=== PATIENT | male | born 1975 | race Caucasian/White ===

== ENCOUNTER 2019-09-13 18:51 | Emergency (ER) | payer SELFPAY ==
[2019-09-13] MEDS ORDERED: TETANUS & DIPHTHERIA TOX,ADULT 0.5 ML VIAL ONE (19:23)
[2019-09-13] MEDS ORDERED: DOXYCYCLINE 100 MG CAP PO ONE (19:23)
[2019-09-13] MEDS ORDERED: LIDOCAINE 1% MPF 5 ML VIAL ONE (19:23)
--- NOTE | 2019-09-13 19:45 | ER ---
Nurse's Notes [facility] Name: Freddie Adler Age: 43 yrs Sex: Male : 1975 Arrival Date: 09/13/2019 Time: 18:52 Bed 7 Private MD: Diagnosis: Laceration without foreign body of left thumb without damage to nail Presentation: 09/13 19:08 Presenting complaint: Patient states: Laceration to right thumb while cutting a fish; lp1 No active bleeding during triage. Transition of care: patient was not received from another setting of care. Complicating Factors: There are no complicating factors for this patient. Onset of symptoms was September 13, 2019 at 18:30. Risk Assessment: Do you want to hurt yourself or someone else? Patient reports no desire to harm self or others. Initial Sepsis Screen: Does the patient meet any 2 criteria? No. Patient's initial sepsis screen is negative. Does the patient have a suspected source of infection? No. Patient's initial sepsis screen is negative. Care prior to arrival: None. 19:08 Method Of Arrival: Ambulatory lp1 19:08 Acuity: MONET 4 lp1 Historical: - Allergies: 19:19 PENICILLINS; lp1 - Home Meds: 19:19 None [Active]; lp1 - PMHx: 19:19 None; lp1 - PSHx: 19:19 None; lp1 - Immunization history:: Adult Immunizations up to date, Last tetanus immunization: up to date. - Social history:: Smoking status: Patient uses tobacco products, smokes two packs cigarettes per day. - Ebola Screening: : No symptoms or risks identified at this time. Screenin:15 Abuse screen: Denies threats or abuse. Nutritional screening: No deficits noted. tl2 Tuberculosis screening: No symptoms or risk factors identified. Fall Risk None identified. Assessment: 19:15 General: Appears in no apparent distress. comfortable, Behavior is calm, cooperative, tl2 appropriate for age. Pain: Complains of pain in palmar aspect of distal phalanx of left thumb and palmar aspect of proximal phalanx of left thumb. Neuro: Level of Consciousness is awake, alert, obeys commands, Oriented to person, place, time, situation. Respiratory: Airway is patent Respiratory effort is even, unlabored, Respiratory pattern is regular, symmetrical. Musculoskeletal: Circulation, motion, and sensation intact. Capillary refill < 3 seconds. Injury Description: Laceration is clean, 0.5 to 2.5 cm long, bleeding moderately, was sustained 30-60 minutes ago. is bleeding a small amount. 19:59 Reassessment: Patient appears in no apparent distress at this time. Patient and/or tl2 family updated on plan of care and expected duration. Pain level reassessed. Patient is alert, oriented x 3, equal unlabored respirations, skin warm/dry/pink. pt verbalized understanding of discharge instructions, need for follow up wound care, and prescription usage. Pt ambulatory out of ER with friend. Vital Signs: 19:08 BP 149 / 97; Pulse 80; Resp 16; Temp 98.2(O); Pulse Ox 98% on R/A; Weight 83.91 kg (R); tl2 Height 6 ft. 0 in. (182.88 cm); Pain 0/10; 19:47 BP 137 / 88; Pulse 75; Resp 18; Pulse Ox 98% on R/A; tl2 19:08 Body Mass Index 25.09 (83.91 kg, 182.88 cm) tl2 ED Course: 18:52 Patient arrived in ED. as 19:03 Brandyn Eduardo NP is PHCP. pm1 19:03 Ky De La Garza MD is Attending Physician. pm1 19:08 Triage completed. lp1 19:09 Fany Ritchie RN is Primary Nurse. tl2 19:09 Arm band placed on. lp1 19:15 Patient has correct armband on for positive identification. tl2 19:15 Wound care: to laceration located on dorsal aspect of proximal phalanx of left thumb tl2 was cleaned with soaked in Betadine solution, irrigated with normal saline, Patient tolerated well. 19:40 Assist provider with laceration repair on dorsal aspect of proximal phalanx of left tl2 thumb that was between 2.6 to 7.5 cm using sutures. Set up tray. Performed by Brandyn Eduardo NP Dressed with band aid, Neosporin, Patient tolerated well. 20:01 Patient did not have IV access during this emergency room visit. tl2 Administered Medications: 19:27 Drug: Doxycycline 100 mg Route: PO; tl2 20:02 Follow up: Response: No adverse reaction tl2 19:27 Drug: Tetanus-Diphtheria Toxoid Adult 0.5 ml {[place] [employer] Attendant: Kiddies Smilz. Exp: tl2 04/08/2021. Lot #: [id number]. } Route: IM; Site: left deltoid; 20:01 Follow up: Response: No adverse reaction tl2 19:38 Drug: Lidocaine (1 %) 5 ml Volume: 5 ml; Route: Infiltration; tl2 Outcome: 19:40 Discharged to home ambulatory, with friend. tl2 19:40 Condition: stable 19:40 Discharge instructions given to patient, Instructed on discharge instructions, follow up and referral plans. medication usage, wound care, Demonstrated understanding of instructions, follow-up care, medications, wound care, Prescriptions given X 1. 19:44 Discharge ordered by MD. pm1 20:01 Patient left the ED. tl2 Signatures: Cindy Desouza Laura, RN RN lp1 Brandyn Eduardo, BRANDON AUTO TRANSMISSION TECHNICIAN pm1 Fany Ritchie RN RN tl2 Corrections: (The following items were deleted from the chart) 19:10 19:08 BP 149 / 97; Pulse 80bpm; Resp 16bpm; Pulse Ox 98% RA; 83.91 kg Reported; Height tl2 6 ft. 0 in.; BMI: 25.0; Pain 0/10; lp1
--- NOTE | 2019-09-13 19:46 | EDPHYS ---
Physician Documentation [facility] Name: Freddie Adler Age: 43 yrs Sex: Male : 1975 Arrival Date: 09/13/2019 Time: 18:52 Bed 7 Private MD: ED Physician Ky De La Garza HPI: 09/13 19:15 This 43 yrs old Male presents to ER via Ambulatory with complaints of pm1 Laceration - Left Thumb. 19:15 The patient or guardian reports a laceration. The complaints affect the dorsal aspect pm1 of proximal phalanx of left thumb. Context: The problem was sustained outdoors, resulted from laceration from knife while filleting fish. Onset: The symptoms/episode began/occurred just prior to arrival. Modifying factors: The symptoms are alleviated by pressure to area, the symptoms are aggravated by nothing. Associated signs and symptoms: Pertinent negatives: cyanosis distally, decreased sensation distally, fever, numbness distally, tingling distally. Severity of symptoms: in the emergency department the symptoms have improved. The patient has experienced a previous episode, many years ago, cut has the extensor tendon in the same location requiring surgical repair. The patient has not recently seen a physician. Historical: - Allergies: 19:19 PENICILLINS; lp1 - Home Meds: 19:19 None [Active]; lp1 - PMHx: 19:19 None; lp1 - PSHx: 19:19 None; lp1 - Immunization history:: Adult Immunizations up to date, Last tetanus immunization: up to date. - Social history:: Smoking status: Patient uses tobacco products, smokes two packs cigarettes per day. - Ebola Screening: : No symptoms or risks identified at this time. ROS: 19:15 Constitutional: Negative for fever, chills, and weight loss. pm1 19:15 Cardiovascular: Negative for chest pain, palpitations, and edema, Respiratory: Negative for shortness of breath, cough, wheezing, and pleuritic chest pain. 19:15 MS/extremity: Positive for laceration, pain, of the dorsal aspect of proximal phalanx of left thumb, Negative for decreased range of motion, deformity, paresthesias, tingling. 19:15 Skin: Positive for laceration(s), of the dorsal aspect of proximal phalanx of left thumb. 19:15 All other systems are negative. Exam: 19:15 Constitutional: This is a well developed, well nourished patient who is awake, alert, pm1 and in no acute distress. Head/Face: Normocephalic, atraumatic. Chest/axilla: Normal chest wall appearance and motion. Nontender with no deformity. No lesions are appreciated. Cardiovascular: Regular rate and rhythm with a normal S1 and S2. No gallops, murmurs, or rubs. Normal PMI, no JVD. No pulse deficits. Respiratory: Lungs have equal breath sounds bilaterally, clear to auscultation and percussion. No rales, rhonchi or wheezes noted. No increased work of breathing, no retractions or nasal flaring. 19:15 Musculoskeletal/extremity: Extremities: grossly normal except: noted in the dorsal aspect of proximal phalanx of left thumb: laceration, There is no evidence of decreased ROM, ROM: full active range of motion, in the left thumb, full passive range of motion, in the left thumb, Circulation is intact in all extremities. capillary refill brisk to left thumb. the left thumb Sensation intact. 19:15 Skin: Appearance: normal except for affected area, injury, laceration(s), the wound is approximately 1.5 cm(s), with a depth of 0.5 cm(s), of the dorsal aspect of proximal phalanx of left thumb. 19:15 Neuro: Orientation: is normal, Motor: is normal, moves all fours, Gait: is steady, at a normal pace, without difficulty. Vital Signs: 19:08 BP 149 / 97; Pulse 80; Resp 16; Temp 98.2(O); Pulse Ox 98% on R/A; Weight 83.91 kg (R); tl2 Height 6 ft. 0 in. (182.88 cm); Pain 0/10; 19:47 BP 137 / 88; Pulse 75; Resp 18; Pulse Ox 98% on R/A; tl2 19:08 Body Mass Index 25.09 (83.91 kg, 182.88 cm) tl2 Laceration: 19:42 Wound Repair of 1.5cm ( 0.6in ) subcutaneous laceration to dorsal aspect of proximal pm1 phalanx of left thumb. Linear shaped.. Distal neuro/vascular/tendon intact. Anesthesia: Local anesthetic administered with 2 mls of 1% lidocaine. Wound prep: Extensive cleansing with betadine by me, Wound irrigation with saline by me, Wound explored extensively, Copious irrigation. Skin closed with 3 5-0 Prolene using simple sutures and sterile technique. Dressed with Neosporin, 4x4's. Patient tolerated well. MDM: 19:03 Patient medically screened. pm1 19:22 Data reviewed: vital signs. Data interpreted: Pulse oximetry: on room air is 98 %. pm1 Interpretation: normal. 19:44 Counseling: I had a detailed discussion with the patient and/or guardian regarding: the pm1 historical points, exam findings, and any diagnostic results supporting the discharge/admit diagnosis, the need for outpatient follow up, to return to the emergency department if symptoms worsen or persist or if there are any questions or concerns that arise at home. 09/13 19:09 Order name: Prolene, Sutures; Complete Time: 19:26 pm1 09/13 19:09 Order name: Dressing - Wound; Complete Time: 19:47 pm1 09/13 19:09 Order name: Gloves, Sterile; Complete Time: 19:10 pm1 09/13 19:09 Order name: Setup Suture Tray; Complete Time: 19:10 pm1 09/13 19:09 Order name: Wound Care; Complete Time: 19:15 pm1 Administered Medications: 19:27 Drug: Doxycycline 100 mg Route: PO; tl2 20:02 Follow up: Response: No adverse reaction tl2 19:27 Drug: Tetanus-Diphtheria Toxoid Adult 0.5 ml {Journeyman Power Plant Operator: [employer]. Exp: tl2 04/08/2021. Lot #: [id number]. } Route: IM; Site: left deltoid; 20:01 Follow up: Response: No adverse reaction tl2 19:38 Drug: Lidocaine (1 %) 5 ml Volume: 5 ml; Route: Infiltration; tl2 Disposition: 09/13/19 19:44 Discharged to Home. Impression: Laceration without foreign body of left thumb without damage to nail. - Condition is Stable. - Discharge Instructions: Laceration Care, Adult. - Prescriptions for Doxycycline Hyclate 100 mg Oral Tablet - take 1 tablet by ORAL route every 12 hours; 20 tablet. - Medication Reconciliation Form, Thank You Letter, Antibiotic Education, Prescription Opioid Use form. - Follow up: Emergency Department; When: As needed; Reason: Worsening of condition. Follow up: Private Physician; When: 10 - 14 days; Reason: Wound Recheck, Recheck today's complaints, Continuance of care, Staple/Suture removal, Re-evaluation by your physician. - Problem is new. - Symptoms have improved. Signatures: Honey Anne RN RN lp1 Brandyn Eduardo NP PASTE UP WORKER pm1 Fany Ritchie RN RN tl2 Corrections: (The following items were deleted from the chart) 20:01 19:44 09/13/2019 19:44 Discharged to Home. Impression: Laceration without foreign body tl2 of left thumb without damage to nail. Condition is Stable. Forms are Medication Reconciliation Form, Thank You Letter, Antibiotic Education, Prescription Opioid Use. Follow up: Emergency Department; When: As needed; Reason: Worsening of condition. Follow up: Private Physician; When: 10 - 14 days; Reason: Wound Recheck, Recheck today's complaints, Continuance of care, Staple/Suture removal, Re-evaluation by your physician. Problem is new. Symptoms have improved. pm1
[2019-09-13 20:10] VITALS: TEMP 98.2; O2SAT 98
[2019-09-13 20:11] VITALS: BP 137/88
== END 2019-09-13 20:01 | disposition home or self-care (01) ==
LOC: ER 18:51
PROC: 0JQK0ZZ Repair Left Hand Subcutaneous Tissue and Fascia, Open Approach (ICD-10-PCS; principal; 2019-09-13)
DX: S61.012A Laceration without foreign body of left thumb without damage to nail, initial encounter (principal); W26.0XXA Contact with knife, initial encounter; Y93.89 Activity, other specified; Y92.89 Other specified places as the place of occurrence of the external cause; Z23 Encounter for immunization; Z88.0 Allergy status to penicillin; F17.210 Nicotine dependence, cigarettes, uncomplicated
CPT/HCPCS: 90471; 90714; 99284

== ENCOUNTER 2022-03-17 12:21 | Emergency (ER) | payer SELFPAY ==
--- NOTE | 2022-03-17 13:52 | RAD REPORT ---
EXAM DESCRIPTION: RAD - Hand Right 3 View - 03/17/2022 1:25 pm CLINICAL HISTORY: Right hand pain status post injury FINDINGS: 2 millimeter density lies adjacent to the fourth PIP joint. If this is the site of point t enderness then this probably indicates a tiny avulsion fracture. No dislocation
--- NOTE | 2022-03-17 14:44 | ER ---
Nurse's Notes [facility] Name: Freddie Adler Age: 46 yrs Sex: Male : 1975 Arrival Date: 03/17/2022 Time: : Bed DIS1 Private MD: Diagnosis: Finger Fracture Presentation: 03/17 12:35 Chief complaint: Patient states: injured his right 4th digit on hand about 30 minutes iw ago. Coronavirus screen: At this time, the client does not indicate any symptoms associated with coronavirus-19. Ebola Screen: Patient negative for fever greater than or equal to 101.5 degrees Fahrenheit, and additional compatible Ebola Virus Disease symptoms Patient denies exposure to infectious person. Patient denies travel to an Ebola-affected area in the 21 days before illness onset. No symptoms or risks identified at this time. Initial Sepsis Screen: Does the patient meet any 2 criteria? No. Patient's initial sepsis screen is negative. Does the patient have a suspected source of infection? No. Patient's initial sepsis screen is negative. Risk Assessment: Do you want to hurt yourself or someone else? Patient reports no desire to harm self or others. Onset of symptoms was March 17, 2022. 12:35 Method Of Arrival: Ambulatory iw 12:35 Acuity: MONET 4 iw Historical: - Allergies: 12:36 PENICILLINS; iw - Home Meds: 12:36 None [Active]; iw - PMHx: 12:36 None; iw - Immunization history:: Adult Immunizations unknown. - Social history:: Smoking status: unknown. Screenin:22 Abuse screen: Denies threats or abuse. Denies injuries from another. Nutritional ss screening: No deficits noted. Tuberculosis screening: Never had TB. Fall Risk None identified. Assessment: 12:37 General: Appears in no apparent distress. Behavior is calm, cooperative. Pain: Denies iw pain. Neuro: Level of Consciousness is awake, alert, obeys commands. Derm: Skin is intact, is healthy with good turgor. Musculoskeletal: Swelling present in dorsal aspect of middle phalanx of right ring finger and dorsal aspect of proximal phalanx of right ring finger. Vital Signs: 12:37 BP 138 / 99; Pulse 90; Resp 16; Temp 98.4; Pulse Ox 96% on R/A; iw ED Course: : Patient arrived in ED. ds1 12:22 Donis Rooney PA is PHCP. jmm 12:22 Pito Blanca MD is Attending Physician. m 12:36 Triage completed. iw 12:37 Arm band placed on. iw 13:27 Hand Right 3 View XRAY In Process Unspecified. EDMS 14:15 Mariely Camacho, RN is Primary Nurse. iw 14:22 Patient has correct armband on for positive identification. ss 14:22 No provider procedures requiring assistance completed. Patient did not have IV access ss during this emergency room visit. 14:24 Aluminum finger splint applied to right ring finger. dh3 14:42 Jose Jc MD is Referral Physician. [facility] Administered Medications: No medications were administered Outcome: 14:43 Discharge ordered by . [facility] 14:48 Discharged to 14:48 Discharged to home ambulatory. 14:48 Condition: good 14:48 Discharge instructions given to patient, Instructed on discharge instructions, follow up and referral plans. Demonstrated understanding of instructions, follow-up care, splint care. 14:49 Patient left the ED. Signatures: Dispatcher [employer] EDMS Donis Rooney PA PA Suha Rose ds1 Mariely Camacho, RN RN Concepcion Montaño RN RN Karlene Colby count includes the [facility]
--- NOTE | 2022-03-17 14:44 | EDPHYS ---
Physician Documentation [facility] Name: Freddie Adler Age: 46 yrs Sex: Male : 1975 Arrival Date: 03/17/2022 Time: 12: Bed DIS1 Private MD: ED Physician Pito Blanca HPI: 03/17 12:38 This 46 yrs old Male presents to ER via Ambulatory with complaints of Finger Injury. jmm 12:38 Onset: The symptoms/episode began/occurred acutely, just prior to arrival. Modifying jmm factors: The symptoms are alleviated by nothing, the symptoms are aggravated by movement. Associated signs and symptoms: Pertinent negatives: cyanosis distally, decreased sensation distally, fever, numbness distally, tingling distally, vomiting. This is a 46 year old male with no chronic medical conditions that presents to the the ED with complaints of right 4th finger pain which occurred after a fall. Patient states he tripped, landing on the right hand. Denies other known injury. . Historical: - Allergies: 12:36 PENICILLINS; iw - Home Meds: 12:36 None [Active]; iw - PMHx: 12:36 None; iw - Immunization history:: Adult Immunizations unknown. - Social history:: Smoking status: unknown. ROS: 12:38 Constitutional: Negative for fever, chills, and weight loss, Cardiovascular: Negative jmm for chest pain, palpitations, and edema, Respiratory: Negative for shortness of breath, cough, wheezing, and pleuritic chest pain. 12:38 MS/extremity: Positive for injury or acute deformity, pain. 12:38 All other systems are negative. Exam: 12:38 Constitutional: This is a well developed, well nourished patient who is awake, alert, jmm and in no acute distress. Head/Face: atraumatic. Eyes: EOMI, no conjunctival erythema appreciated ENT: Moist Mucus Membranes Neck: Trachea midline, Supple Chest/axilla: Normal chest wall appearance and motion. Cardiovascular: Regular rate and rhythm. No edema appreciated Respiratory: Normal respirations, no respiratory distress appreciated Abdomen/GI: Non distended, soft Back: Normal ROM Skin: General appearance color normal 12:38 Musculoskeletal/extremity: right 4th finger, from appreciated, ttp at the pip, < 2 sec dist cap refill, sensation intact. 12:38 Skin: Appearance: Color: normal in color. 12:38 Neuro: Motor: is normal. 12:38 Psych: Behavior/mood is pleasant, cooperative. Vital Signs: 12:37 BP 138 / 99; Pulse 90; Resp 16; Temp 98.4; Pulse Ox 96% on R/A; iw Procedures: 14:42 Splinting: Splint applied to right hand using finger splint, applied by nurse. Examined jm by me, post splint application: neurovascular intact, 2+ distal pulses palpable, brisk capillary refill noted, Patient tolerated well. MDM: 12:38 Patient medically screened. [facility] 14:42 Data reviewed: vital signs, nurses notes. Counseling: I had a detailed discussion with [facility] the patient and/or guardian regarding: the historical points, exam findings, and any diagnostic results supporting the discharge/admit diagnosis, radiology results, the need for outpatient follow up, to return to the emergency department if symptoms worsen or persist or if there are any questions or concerns that arise at home. 03/17 12:38 Order name: Hand Right 3 View XRAY; Complete Time: 13:59 [facility] 03/17 13:59 Order name: Finger Splint; Complete Time: 14:22 [facility] Administered Medications: No medications were administered Disposition Summary: 03/17/22 14:43 Discharge Ordered Location: Home [facility] Condition: Stable [facility] Diagnosis - Finger Fracture [facility] Followup: [facility] - With: Jose Jc MD - When: 2 - 3 days - Reason: Recheck today's complaints, Continuance of care, Re-evaluation by your physician Discharge Instructions: - Discharge Summary Sheet [facility] - Finger Fracture, Adult [facility] Forms: - Medication Reconciliation Form [facility] - Thank You Letter [facility] - Antibiotic Education [facility] - Prescription Opioid Use [facility] Signatures: Dispatcher [employer] Donis Gayle PA PA jmm Williams, Irene, RN RN iw
[2022-03-17 15:05] VITALS: BP 138/99; TEMP 98.4; O2SAT 96
== END 2022-03-17 14:49 | disposition home or self-care (01) ==
LOC: ER 12:21
PROC: 2W3JX1Z Immobilization of Right Finger using Splint (ICD-10-PCS; principal; 2022-03-17)
DX: S62.614A Displaced fracture of proximal phalanx of right ring finger, initial encounter for closed fracture (principal); W01.0XXA Fall on same level from slipping, tripping and stumbling without subsequent striking against object, initial encounter; Z88.0 Allergy status to penicillin
CPT/HCPCS: 99283